=== PATIENT | female | born 1935 | race Caucasian/White ===

== ENCOUNTER 2019-08-02 16:36 | Observation (INO) | payer OTHER, MEDICAID ==
[~2019-08-02] VITALS: Ht 165.1 cm; Wt 97.1 kg
[~2019-08-02 16:36] MED LIST: ATIVAN0.5 M1 PO; CIPRO500 MG PO; EVI60 PO; EVISTA60 MG PO; GABAPENTIN100 M2 PO; HYDROCODONE BIT1 T12 PO; LAC PO
[2019-08-02 16:45] VITALS: Ht 165.1 cm; Wt 97.1 kg
[2019-08-02 16:58] LABS: BASOPHIL % 0.4 % (0-2); PLATELET COUNT 159 x10^3mcL (130-400); RED CELL DISTRIBUTION WIDTH 14.1 % (11.5-14.5)
[2019-08-02 17:20] LABS: ALKALINE PHOSPHATASE 70 U/L (46-116); ALT/SGPT 17 U/L (14-59); AST/SGOT 15 U/L (15-37); BILIRUBIN TOTAL 0.32 mg/dL (0.20-1.00); CREATININE SERUM 0.5 mg/dL (0.6-1.0); GLUCOSE SERUM 112 mg/dL (74-106); TOTAL PROTEIN, SERUM 6.6 g/dL (6.4-8.2)
[2019-08-02 17:22] LABS: ALBUMIN 3.3 g/dL (3.4-5.0)
[2019-08-02 18:10] LABS: CHLORIDE SERUM 105 mmol/L (98-107); POTASSIUM SERUM 3.7 mmol/L (3.5-5.1); SODIUM SERUM 141 mmol/L (136-145)
[2019-08-02 18:19] LABS: CARBON DIOXIDE 27.1 mmol/L (21-32)
[2019-08-02 20:44] VITALS: BP 139/86
[2019-08-02 21:19] LABS: CHOLESTEROL/HDL RATIO 3.1
[2019-08-03 05:11] VITALS: BP 124/53
[2019-08-03 08:34] VITALS: BP 136/64
[2019-08-03 12:35] VITALS: BP 145/61
[2019-08-03 16:16] VITALS: BP 145/61
== END 2019-08-03 17:20 | disposition home or self-care (01) | DRG 206 ==
LOC: ED 16:36 → DU 19:40 → EDBEDREQ 19:40 → DU 19:40
PROVIDERS: ADMIT Internal Medicine Pulmonary Disease
DX: J98.11 Atelectasis (principal); I10 Essential (primary) hypertension; M54.9 Dorsalgia, unspecified; G89.29 Other chronic pain; Z96.651 Presence of right artificial knee joint
CPT/HCPCS: 90658; 94150; G0378